=== PATIENT | male | born 1970 | race American Indian/Alaskan Native ===

== ENCOUNTER 2020-05-22 12:04 | Emergency (ER) | payer OTHER ==
[2020-05-22 12:24] VITALS: BP 147/85
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
== END 2020-05-22 15:29 | disposition home or self-care (01) ==
LOC: ED 12:04
DX: S16.1XXA Strain of muscle, fascia and tendon at neck level, initial encounter (principal); M62.830 Muscle spasm of back; I10 Essential (primary) hypertension; F12.10 Cannabis abuse, uncomplicated; E66.01 Morbid (severe) obesity due to excess calories; Z68.43 Body mass index [BMI] 50.0-59.9, adult; V89.2XXA Person injured in unspecified motor-vehicle accident, traffic, initial encounter; Y93.89 Activity, other specified; Y92.410 Unspecified street and highway as the place of occurrence of the external cause; Y99.8 Other external cause status
CPT/HCPCS: 99283

== ENCOUNTER 2020-05-24 14:20 | Emergency (ER) | payer SELFPAY ==
[2020-05-24 14:35] VITALS: BP 157/89
== END 2020-05-24 18:37 | disposition left against medical advice (07) ==
LOC: ED 14:20
DX: M25.561 Pain in right knee (principal); Z53.21 Procedure and treatment not carried out due to patient leaving prior to being seen by health care provider